=== PATIENT | male | born 1950 | race Caucasian/White ===

== ENCOUNTER 2021-12-19 10:10 | Inpatient (IN) | payer OTHER, MEDICAID ==
[~2021-12-19] VITALS: Ht 175.3 cm; Wt 118.4 kg
--- NOTE | 2021-12-19 10:10 | NUR ---
[facility] TO ER BED 8
[2021-12-19 10:16] VITALS: BP 135/44
--- NOTE | 2021-12-19 10:21 | NUR ---
DR CERDA AT BEDSIDE.
--- NOTE | 2021-12-19 10:38 | NUR ---
X-RAY AT BEDSIDE.
--- NOTE | 2021-12-19 10:38 | NUR ---
LAB AT BEDSIDE.
[2021-12-19 11:04] LABS: BASOPHILS # (AUTO) 0.1 K/uL (0.00-0.22); BASOPHILS % (AUTO) 0.6 % (0.0-2.0); EOSINOPHILS # (AUTO) 0.1 K/uL (0-0.4); EOSINOPHILS % (AUTO) 0.7 % (0.0-4.0); HEMATOCRIT 47.5 % (36-52); HEMOGLOBIN 16.2 g/dL (12.0-18.0); LYMPHOCYTES # (AUTO) 0.7 K/uL (2.0-11.5); LYMPHOCYTES % (AUTO) 5.7 % (20.5-51.1); MEAN CORPUSCULAR HEMOGLOBIN 31 pg (27-31); MEAN CORPUSCULAR HGB CONC 34 g/dL (33-37); MEAN CORPUSCULAR VOLUME 89.6 fL (80-94); MONOCYTES # (AUTO) 1.1 K/uL (0.8-1.0); MONOCYTES % (AUTO) 8.7 % (1.7-9.3); NEUTROPHILS # (AUTO) 10.9 K/uL (1.8-7.7); NEUTROPHILS % (AUTO) 84.3 % (42.2-75.2); PLATELET COUNT (AUTO) 140 K/uL (140-450); RED CELL DISTRIBUTION WIDTH 14.8 % (11.6-13.7); WHITE BLOOD COUNT (AUTO) 12.9 K/uL (4.8-10.8)
--- NOTE | 2021-12-19 11:05 | NUR ---
ULTRASOUND AT BEDSIDE.
--- NOTE | 2021-12-19 11:05 | NUR ---
71 Y/O M BIBA FROM HOME C/O R KNEE PAIN 10 POST FALL LAST NIGHT. PT A&O X 2. DENIES LOC OR HEAD INJURY. DENIES FEVER/CHILLS. DENIES N/V/D. PT IS A POOR HISTORIAN. PMH: HTN, DM ALLERGIES: PCN
[2021-12-19] MEDS ORDERED: cefTRIAXone 1,000 MG VIAL ONE (11:18)
--- NOTE | 2021-12-19 11:22 | NUR ---
PT PROVIDED WITH WARM BLANKET
[2021-12-19 11:25] LABS: ALBUMIN 3.6 g/dL (3.4-5.0); ANION GAP 13.7 (8-16); CREATININE 1.7 mg/dL (0.6-1.3); POTASSIUM 4.7 mmol/L (3.5-5.1); TOTAL BILIRUBIN 1.3 mg/dL (0.0-1.0)
--- NOTE | 2021-12-19 12:02 | NUR ---
PT TO CT VIA [facility].
[2021-12-19] MEDS ORDERED: NACL 0.9% 1,000 ML IV ONE (12:40)
[2021-12-19 13:16] LABS: PROTHROMBIN TIME 11.5 secs (10.8-13.4)
[2021-12-19] MEDS ORDERED: AZITHROMYCIN 500 MG in DEXTROSE 5% 250 ML IV ONE (13:40)
--- NOTE | 2021-12-19 13:43 | NUR ---
BOARDING HOUSE MANAGER AT PT BEDSIDE.
[2021-12-19] MEDS ORDERED: AZITHROMYCIN 500 MG INJ VIAL IV ONE (13:59)
--- NOTE | 2021-12-19 14:16 | NUR ---
PT DOES NOT KNOW WHAT MEDS HE TAKES. CALLED AND LEFT A MESSAGE WITH THE CAREGIVER MARYAM TO GET THE LIST OF MEDS. [phone].
[2021-12-19] MEDS ORDERED: POTASSIUM CHLORIDE 10 MEQ TABER PO PRN (14:40)
[2021-12-19] MEDS ORDERED: DOCUSATE SODIUM 100 MG GELCAP PO PRN (14:40)
[2021-12-19] MEDS ORDERED: ONDANSETRON 4 MG/2 ML VIAL IVP PRN (14:40)
[2021-12-19] MEDS ORDERED: DEXTROSE 50% 50 ML SYR IVP PRN (14:40)
[2021-12-19] MEDS ORDERED: LORazepam 2 MG/ML VIAL IVP PRN (14:40)
[2021-12-19] MEDS ORDERED: MAG SULF 2000 MG/WATER PREMIX 50 ML IV PRN (14:40)
[2021-12-19] MEDS ORDERED: ALBUTEROL SULFATE/IPRATROPIU 3 ML SOL IH PRN (14:40)
[2021-12-19] MEDS ORDERED: AZITHROMYCIN 250 MG TAB PO ONE (14:45)
--- NOTE | 2021-12-19 15:10 | NUR ---
BED GIVEN FROM TELE CHARGE GENESIS ARENAS. WAS TOLD WILL ASSIGN RN AND CALL BACK WHEN ROOM IS READY
[2021-12-19] MEDS: NACL 0.9% 500 ML IV SCH ×2 (15:36→21:58)
[2021-12-19] MEDS: BLOOD GLUCOSE MONITORING 1 DEV DEV FS SCH ×2 (16:52→20:38)
--- NOTE | 2021-12-19 17:13 | NUR ---
Pt report given to CARLEY HURTADO. Transfer of care at this time.
--- NOTE | 2021-12-19 17:15 | NUR ---
RECEIVED REPORT FROM GERIATRIC NURSE ASSISTANT. STATES HOME MED REC NOT COMPLETED. PT UNABLE TO RECALL MEDICATIONS. CONTACTED CAREGIVER MARYAM AT X5 TIMES AND MESSAGE LEFT TO CALL POOL RN FOR PT'S MEDICAL HISTORY AND MEDICATIONS. AWAITING PHONE CALL RETURN. PT A/O X3. SOB NOTED ON EXERTION. ON 2L NC. STATES PAIN ON RLE. ON TELE, CCHO DIET. #18 LAC SL. NEEDS ALL MET AT THIS TIME. SAFETY MEASURES IN PLACE. WILL CONTINUE TO MONITOR.
[2021-12-19] MEDS ORDERED: PIPERACILLIN/TAZOBACTAM 3.375 GM in DEXTROSE 5% 50 ML IV SCH (18:00)
--- NOTE | 2021-12-19 19:37 | NUR ---
REPORT GIVEN TO NIGHTSHIFT RN FOR CONTINUITY OF CARE.
[2021-12-19 20:00] VITALS: BP 130/67
--- NOTE | 2021-12-19 20:00 | NUR ---
GET REPORT FROM MORNING NURSE, PATIENT IS LYING ON BED ,PATIENT IS ALERT AND ORIENTED X4, NO ANY COMPLAIN OF PAIN OR SHORTNESS OF BREATH NOTED AT THIS TIME, VITAL SIGN IS WITHIN THE NORMAL RANGE , ALL DUE MEDS ARE GIVEN PER DR ORDER, CALL LIGHT IS WITHIN THE REACH, WILL CONTINUE TO MONITOR
--- NOTE | 2021-12-19 20:38 | NUR ---
BLOOD SUGAR CHECK WAS 110, NO INSULIN COVERAGE NEEDED.
[2021-12-20] VITALS: BP 140/61
--- NOTE | 2021-12-20 | NUR ---
PATIENT IS LYING ON BED ,PATIENT IS ALERT AND ORIENTED X4, NO ANY COMPLAIN OF PAIN OR SHORTNESS OF BREATH AT THIS TIME, , VITAL SIGN IS WITHIN THE NORMAL RANGE , ALL DUE MEDS ARE GIVEN PER DR ORDER, CHANGE PATIENT POSITION CALL LIGHT IS WITHIN THE REACH, WILL CONTINUE TO MONITOR.
[2021-12-20] MEDS: MORPHINE SULFATE 2 MG/ML SYR IVP PRN ×4 (00:39→20:55)
--- NOTE | 2021-12-20 00:40 | NUR ---
PATIENT IS COMPLAINING OF PAIN /, BP;140/61. OR: 93/M. MORPHINE 2MG PRN GIVEN PER DOCTOR ORDER, WILL REASSESS THE PAIN AND WILL CONTINUE TO MONITOR .
[2021-12-20 04:00] VITALS: BP 138/76
--- NOTE | 2021-12-20 04:43 | NUR ---
PATIENT IS LYING ON BED ,PATIENT IS ALERT AND ORIENTED X4, NO ANY COMPLAIN OF PAIN OR SHORTNESS OF BREATH AT THIS TIME, VITAL SIGN IS WITHIN THE NORMAL RANGE , ALL DUE MEDS ARE GIVEN PER DR ORDER, HELPED TO RE POSITION AND CHANGE PATIENT, CALL LIGHT IS WITHIN THE REACH, WILL CONTINUE TO MONITOR
--- NOTE | 2021-12-20 05:07 | NUR ---
PATIENT IS COMPLAINING OF PAIN 6/10, BP IS 139/79.PULSE IS 93, MORPHINE 2MG IV PRN GIVEN PER DOCTOR ORDER,WILL REASSESS PAIN, CALL LIGHT WITHIN THE REACH WILL CONTINUE TO MONITOR.
[2021-12-20] MEDS: NACL 0.9% 500 ML IV SCH ×3 (05:09→21:57)
[2021-12-20] MEDS: BLOOD GLUCOSE MONITORING 1 DEV DEV FS SCH ×4 (06:41→20:41)
[2021-12-20 06:55] LABS: BASOPHILS % (AUTO) 0.4 % (0.0-2.0); EOSINOPHILS % (AUTO) 0.2 % (0.0-4.0); HEMOGLOBIN 14.3 g/dL (12.0-18.0); LYMPHOCYTES # (AUTO) 0.8 K/uL (2.0-11.5); LYMPHOCYTES % (AUTO) 7.5 % (20.5-51.1); MEAN CORPUSCULAR HEMOGLOBIN 31 pg (27-31); MEAN CORPUSCULAR HGB CONC 34 g/dL (33-37); MEAN CORPUSCULAR VOLUME 89.4 fL (80-94); MONOCYTES # (AUTO) 1.3 K/uL (0.8-1.0); MONOCYTES % (AUTO) 12.4 % (1.7-9.3); NEUTROPHILS # (AUTO) 8.4 K/uL (1.8-7.7); PLATELET COUNT (AUTO) 132 K/uL (140-450); RED CELL DISTRIBUTION WIDTH 14.6 % (11.6-13.7); WHITE BLOOD COUNT (AUTO) 10.6 K/uL (4.8-10.8)
[2021-12-20 07:18] LABS: CARBON DIOXIDE 18.9 mmol/L (21-32); CREATININE 1.5 mg/dL (0.6-1.3); POTASSIUM 3.9 mmol/L (3.5-5.1)
--- NOTE | 2021-12-20 07:26 | NUR ---
GIVE PATIENT REPORT TO MORNING NURSE SANDOR . PATIENT IS ALERT AND ORIENTED X4
--- NOTE | 2021-12-20 07:27 | NUR ---
RECEIVED BEDSIDE REPORT FROM GLAZIER SUPERVISOR NURSE, FOR CONTINUOUS OF CARE. PT RESTING, NO DISTRESS NOTED, AWAKE, ALERT ABLE TO LET NEEDS KNOWN. PT ON ROOM AIR, NO SOB NOTED. IV TO LAC 18G PATENT INTACT, INFUSING WELL. INITIAL ASSESSMENT DONE, ALL SAFETY PRECAUTION MET, CALL LIGHT WITHIN REACH, WILL CONTINUE TO MONITOR.
[2021-12-20 07:34] LABS: NEUTROPHILS % (AUTO) 79.5 % (42.2-75.2)
[2021-12-20 08:00] VITALS: BP 136/73
--- NOTE | 2021-12-20 08:00 | NUR ---
DR YESY DOMÍNGUEZ, ASSESSING PT.
[2021-12-20] MEDS ORDERED: MAG SULF 2000 MG/WATER PREMIX 50 ML IV SCH (08:30)
[2021-12-20] MEDS: AZITHROMYCIN 250 MG TAB PO SCH (09:27)
--- NOTE | 2021-12-20 09:34 | NUR ---
DUE MEDICATIONS ADMINISTERED, PT TOLERATED WELL, NO DISTRESS NOTED, WILL CONTINUE TO MONITOR.
--- NOTE | 2021-12-20 10:22 | NUR ---
REPOSITIONED PT, TOLERATED WELL, WILL CONTINUE TO MONITOR.
[2021-12-20 12:00] VITALS: BP 154/50
--- NOTE | 2021-12-20 14:31 | NUR ---
PT RESTING, NO DISTRESS NOTED, WILL CONTINUE TO MONITOR.
[2021-12-20 16:00] VITALS: BP 162/48
[2021-12-20] MEDS: ACETAMINOPHEN 325 MG TAB PO PRN (16:20)
--- NOTE | 2021-12-20 16:21 | NUR ---
PATIENT TEMP 100.7, TYLENOL ORDERED GIVEN, PT TOLERATED, WILL CONTINUE TO MONITOR.
--- NOTE | 2021-12-20 16:41 | NUR ---
PT C/O PAIN, MEDICATION ADMINISTERED, PT TOLERATED WELL, WILL CONTINUE TO MENTION.
--- NOTE | 2021-12-20 19:30 | NUR ---
ENDORSED PT TO MARKET SURVEY REPRESENTATIVE NURSE FOR CONTINUOUS OF CARE.
[2021-12-20 20:00] VITALS: BP 106/57
--- NOTE | 2021-12-20 20:00 | NUR ---
GET REPORT FROM MORNING NURSE, PATIENT IS LYING ON BED, PATIENT IS ALERT AND ORIENTED X3-4 , VITAL SIGN IS WITHIN THE RANGE , BLOOD SUGAR IS 131 NO COVERAGE NEEDED, PATIENT IS COMPLAINING ABOUT PAIN 6/. MORPHINE 2MG IV PRN PER DR ORDER GIVEN, ALL SCHEDULE MEDS ARE GIVEN PER DR ORDER, WILL REASSESS PAIN , CALL LIGHT IS WITHIN THE REACH ,WILL CONTINUE TO MONITOR
[2021-12-20] MEDS: methylPREDNISolone SS 40 MG/ML VIAL IVP SCH (20:34)
[2021-12-21] VITALS: BP 127/67
--- NOTE | 2021-12-21 | NUR ---
PATIENT IS LYING ON BED , NO ANY COMPLAIN OF PAIN , DUE MEDS ARE GIVEN DR ORDER, VITAL SIGN IS WITHIN THE REACH ,CALL LIGHT IS WITHIN THE REACH WILL CONTINUE TO MONITOR.
[2021-12-21] MEDS: NACL 0.9% 500 ML IV SCH (03:40)
[2021-12-21] MEDS: MORPHINE SULFATE 2 MG/ML SYR IVP PRN (03:41)
--- NOTE | 2021-12-21 03:50 | NUR ---
PATIENT IS COMPLAINING OF PAIN 6/10 , MEDICATED WITH MORPHINE 2 MG/ML UV PRN PER DR ORDER , WILL REASSESS THE PAIN LAVAL, CALL LIGHT IS WITHIN THE REACH WILL CONTINUE TO MONITOR
[2021-12-21 04:00] VITALS: BP 114/54
--- NOTE | 2021-12-21 05:10 | NUR ---
PATIENT IS LYING ON BED , DUE MEDS ARE GIVEN DR ORDER, VITAL SIGN IS WITHIN THE RANGE,CALL LIGHT IS WITHIN THE REACH WILL CONTINUE TO MONITOR
--- NOTE | 2021-12-21 05:30 | NUR ---
PT TURNED AND REPOSITIONED IN BED. NO C/O VOICED ALL ORDERED SAFETY PRECAUTIONS IN PLACE.
[2021-12-21] MEDS: BLOOD GLUCOSE MONITORING 1 DEV DEV FS SCH ×4 (06:33→21:00)
[2021-12-21 06:51] LABS: BASOPHILS % (AUTO) 0.1 % (0.0-2.0); EOSINOPHILS % (AUTO) 0.1 % (0.0-4.0); HEMATOCRIT 40.2 % (36-52); HEMOGLOBIN 13.6 g/dL (12.0-18.0); LYMPHOCYTES # (AUTO) 0.5 K/uL (2.0-11.5); LYMPHOCYTES % (AUTO) 5.2 % (20.5-51.1); MEAN CORPUSCULAR HEMOGLOBIN 31 pg (27-31); MEAN CORPUSCULAR HGB CONC 34 g/dL (33-37); MEAN CORPUSCULAR VOLUME 89.8 fL (80-94); MONOCYTES # (AUTO) 0.6 K/uL (0.8-1.0); MONOCYTES % (AUTO) 6.1 % (1.7-9.3); NEUTROPHILS # (AUTO) 9.1 K/uL (1.8-7.7); NEUTROPHILS % (AUTO) 88.5 % (42.2-75.2); PLATELET COUNT (AUTO) 127 K/uL (140-450); RED BLOOD CELL COUNT(AUTO) 4.47 MIL/uL (4.20-6.10); RED CELL DISTRIBUTION WIDTH 14.8 % (11.6-13.7); WHITE BLOOD COUNT (AUTO) 10.2 K/uL (4.8-10.8)
[2021-12-21 07:02] LABS: ANION GAP 15.2 (8-16); CARBON DIOXIDE 18.4 mmol/L (21-32); CREATININE 1.4 mg/dL (0.6-1.3); POTASSIUM 4.6 mmol/L (3.5-5.1)
[2021-12-21] MEDS: NACL 0.9% 1,000 ML IV SCH ×2 (07:40→23:57)
[2021-12-21 08:00] VITALS: BP 153/78
--- NOTE | 2021-12-21 08:51 | NUR ---
PATIENT HAS BEEN SCREENED AND CATEGORIZED MODERATE NUTRITION RISK. PATIENT WILL BE SEEN WITHIN 3-5 DAYS OF ADMISSION. / [address]
[2021-12-21] MEDS: methylPREDNISolone SS 40 MG/ML VIAL IVP SCH ×2 (09:38→21:48)
[2021-12-21] MEDS: AZITHROMYCIN 250 MG TAB PO SCH (09:38)
--- NOTE | 2021-12-21 12:55 | NUR ---
DC PLANNIN YRS OLD MALE PATIENT WAS ADMITTED FROM HOME WITH A DX OF COMMUNITY ACQUIRED PNEUMONIA. PATIENT HAS A HX OF HTN. CXR SHOWED MILD BIBASILAR OPACITIES, ATELECTASIS. CT CHEST SHOWED NO PE. US VENOUS RIGHT LOWER EXT NO DVT. RIGHT X-RAY SHOWED MODERATE JOINT EFFUSION. NO FRACTURE. RAPID COVID TEST NEGATIVE. ADMINISTERED IVF, IV ABX ROCEPHIN AND IV SOLU-MEDROL. CONSULTED WITH CARDIO AND PULMO. DC PLAN TO GO HOME VS SNF. WHEN STABLE Addendum: 12/22/21 at 1403 by Karena Lackey RN DC PLANNING: SPOKE WITH PATIENT REGARDING SNF PLACEMENT, PT STATED WANTED TO GO HOME FIRST AND GO TO SNF. I EXPLAINED THAT THE DR ORDERED FOR HIM TO GO TO SNF FOR REHAB. PT VERBALIZED UNDERSTANDING AND REQUESTING CM TO SPEAK WITH THE INTERACTIVE MEDIA SPECIALIST MAGY AT [phone] . CALLED AND LEFT A MESSAGE. CM TO FOLLOW
--- NOTE | 2021-12-21 13:03 | NUR ---
P.T. NOTES P.T. EVAL COMPLETED; REFER TO EVAL FOR DETAILS.
--- NOTE | 2021-12-21 19:18 | NUR ---
PATIENT SHOWS NO SOB AT THIS TIME. SATS ON ROOM AIR 94%. PATIENT WILL CALL IF HE NEEDS HHNTX
--- NOTE | 2021-12-21 19:30 | NUR ---
PT ENDORSED TO RESIDENTIAL SUPPORT WORKER FOR CONTINUITY OF CARE. POC DISCUSSED.
[2021-12-21 20:00] VITALS: BP 146/76
[2021-12-21] MEDS ORDERED: HYDRAGUARD CREAM TP ONE (21:12)
[2021-12-21] MEDS: INSULIN LISPRO SLIDING SCALE 100 UNITS/ML VIAL SUBQ PRN (22:06)
--- NOTE | 2021-12-22 | NUR ---
JO , C/O SLEEPLESSNESS - BP 146/78 , PA 65 , RR 20 , 02 SAT 97 % - WILL MEDICATE FOR SLEEPLESSNESS .
--- NOTE | 2021-12-22 00:02 | NUR ---
PER PT IF THE DOCTOR DISCHARGE HIM - HE WANTS TO DISHARGE HOME , HE SAID HE HAS CAREGIVER , ALSO HE IS REQUESTING A NEW WHEELCHAIR - WILL ENDORSE IT TO THE NURSE AM .
[2021-12-22] MEDS ORDERED: HYDRAGUARD CREAM TP PRN (00:20)
[2021-12-22] MEDS: ZOLPIDEM 10 MG TAB PO PRN ×2 (00:49→23:52)
[2021-12-22 04:00] VITALS: BP 140/82
--- NOTE | 2021-12-22 04:00 | NUR ---
ROUNDS , NO COMPLAIN MADE .
[2021-12-22 04:04] LABS: APPEARANCE,URINE CLEAR (CLEAR); BILIRUBIN,URINE NEGATIVE (NEGATIVE); BLOOD, URINE 2+ (NEGATIVE); COLOR,URINE YELLOW (YELLOW); LEUKOCYTE ESTERASE ,URINE NEGATIVE (NEGATIVE); NITRITE, URINE NEGATIVE (NEGATIVE); PH,URINE 5.5 (5.0-9.0); UGLUCOSE NEGATIVE (NEGATIVE)
[2021-12-22 04:12] LABS: RBC,URINE 0-5 /HPF (0-5); WBC,URINE 0-5 /HPF (0-5)
--- NOTE | 2021-12-22 06:00 | NUR ---
SLEEPING , BUT EASILY AWAKEABLE BY SOUNDS , CALL LIGHT WITHIN REACH .
[2021-12-22] MEDS: BLOOD GLUCOSE MONITORING 1 DEV DEV FS SCH ×4 (06:28→21:09)
[2021-12-22 06:58] LABS: BASOPHILS % (AUTO) 0.2 % (0.0-2.0); HEMATOCRIT 39.6 % (36-52); HEMOGLOBIN 13.2 g/dL (12.0-18.0); LYMPHOCYTES # (AUTO) 0.7 K/uL (2.0-11.5); LYMPHOCYTES % (AUTO) 4.6 % (20.5-51.1); MEAN CORPUSCULAR HEMOGLOBIN 30 pg (27-31); MEAN CORPUSCULAR HGB CONC 33 g/dL (33-37); MEAN CORPUSCULAR VOLUME 90.4 fL (80-94); MONOCYTES # (AUTO) 0.6 K/uL (0.8-1.0); MONOCYTES % (AUTO) 4.4 % (1.7-9.3); NEUTROPHILS # (AUTO) 12.8 K/uL (1.8-7.7); NEUTROPHILS % (AUTO) 90.8 % (42.2-75.2); PLATELET COUNT (AUTO) 167 K/uL (140-450); RED BLOOD CELL COUNT(AUTO) 4.38 MIL/uL (4.20-6.10); RED CELL DISTRIBUTION WIDTH 14.7 % (11.6-13.7); WHITE BLOOD COUNT (AUTO) 14.1 K/uL (4.8-10.8)
--- NOTE | 2021-12-22 07:25 | NUR ---
ENDORSE TO AM SHIFT PT'S REQUESTING WHEELCHAIR . [employer] SERVICE TEAM MEMBER PRASANTH VERBALIZES UNDERSTANDING .
[2021-12-22 08:00] VITALS: BP 136/66
[2021-12-22 08:09] LABS: CARBON DIOXIDE 15.9 mmol/L (21-32); CREATININE 1.3 mg/dL (0.6-1.3); POTASSIUM 4.9 mmol/L (3.5-5.1)
[2021-12-22] MEDS: AZITHROMYCIN 250 MG TAB PO SCH (08:34)
[2021-12-22] MEDS: methylPREDNISolone SS 40 MG/ML VIAL IVP SCH ×2 (08:34→21:10)
[2021-12-22] MEDS: lisinopriL 20 MG TAB PO SCH (08:38)
--- NOTE | 2021-12-22 10:25 | NUR ---
DC PLANNING LATE ENTRY, CLIENT SEEN ON 12/22/21 PATIENT IS A 70 YR OLD MALE WHO ARRIVED TO [facility]/ED ON 12/19 FOR COMMUNITY ACQUIRED PNEUMONIA. SW MET WITH PATIENT AT BEDSIDE FOR THE PURPOSE OF DISCUSSING AND GATHERING COLLATERAL INFORMATION. PATIENT REPORTS LIVING ALONE AND HAS A CAREGIVER (MAGY RASHID) [phone] WHO COMES 2X PER WEEK () TO AID IN CARE/APPTS. PATIENT REPORTS EMERGENCY CONTACT AND MEDICAL DECISION MAKER [facility] [phone]. SW INQUIRED ON A.D; PATIENT DENIED HAVING A.D IN PLACE. SW PROVIDED PATIENT WITH INFORMATION; PATIENT WAS RECEPTIVE AND ACCEPTED PACKET.PATIENT REPORTS MEETING WITH HIS PCP REGULARLY AND REPORTS LAST VISIT 1 WEEK PRIOR. PATIENT DENIES BARRIERS IN ACQUIRING MEDICATION AND REPORTS RECEIVING MEDICATIONS FROM THE [facility] [place], WHEN NEEDED. PATIENT REPORTS BEING AMBULATORY WITH WALKER OR CANE ASSISTANCE. PATIENT REPORTS THE ABILITY TO COMPLETE ADLS ON HIS OWN. SW SPOKE WITH PATIENT ABOUT 'S RECOMMENDATIONS FOR SNF CARE, PATIENT REPORTED WANTING TO GO HOME BEFORE BEING PLACED IN CARE. [facility] ATTEMPTED TO PROVIDE PATIENT WITH EDUCATION ON SNF CARE HOWEVER, PATIENT REQUESTED THAT [facility] BE SPOKEN TO ABOUT DECISION. [facility] IS WORKING TO CONTACT [facility] TO PROVIDE SNF INFORMATION. SW INQUIRED ON ADDITIONAL RESOURCES NEED, PATIENT DECLINED AT THIS TIME.
[2021-12-22] MEDS: INSULIN LISPRO SLIDING SCALE 100 UNITS/ML VIAL SUBQ PRN ×2 (11:56→21:27)
[2021-12-22] MEDS: NACL 0.9% 1,000 ML IV SCH (12:16)
[2021-12-22 20:00] VITALS: BP 128/78
--- NOTE | 2021-12-22 20:00 | NUR ---
C/O LEG AND KNEE PAIN - HE RATING 9 - WILL MEDICATE Addendum: 12/22/21 at 2034 by Gilda Henrdicks RN BP 128/ 78 , [place] 65 , RR 20 , O2 SAT 96 %
[2021-12-22] MEDS: MORPHINE SULFATE 2 MG/ML SYR IVP PRN (20:25)
--- NOTE | 2021-12-22 20:48 | NUR ---
PT LAYING IN BED, HOB ELEVATED ANTERIOR AUSCULTATIONS REVEALED BS CLEAR THROUGHOUT ALL LUNG BAINS, NO SIGNS OF RESPIRATORY DISTRESS NOTED AT THIS TIME. PT IS CURRENTLY SATING 95% ON RA. PT DEMONSTRATED WEAK NON PRODUCTIVE COUGH. WILL CONTINUE TO MONITOR.
--- NOTE | 2021-12-22 23:00 | NUR ---
HIT THE CALL LIGHT - PT REQUESTINBG SLEEPING PILL - WILL MEDICATE
[2021-12-23] MEDS: NACL 0.9% 1,000 ML IV SCH (00:13)
[2021-12-23 04:00] VITALS: BP 136/80
--- NOTE | 2021-12-23 04:00 | NUR ---
ROUNDS , UP AND DOWN TO THE BED - ALTHOUGH CAN ANSWER THE QUESTION APPROPRIATELY , 02 SAT 97 TO 96 % , DENIES PAIN
--- NOTE | 2021-12-23 04:45 | NUR ---
ASKING PHARMACIST IF I WILL GIVE ATIVAN PRN - I NOTICE PT HAS ON AND OFF CONFUSSION SINCE HE TOOK AMBIEN , ALTHOUGH ALL V/S ARE WNL - PER PHARMACIST THERE IS RARE CASES THAT PEOPLE GOT CONFUSSION WHEN THEY TOOK AMBIEN BUT THAT IS A SHORT TIME - PHARMACIST SUGGESTING TO MONITOR FIRST AND IF NEEDED MAY GIVE ATIVAN NEEDED .- WILL ENDORSE .
--- NOTE | 2021-12-23 06:00 | NUR ---
PT'S TRYING TO GET UP - BED ALARM ON - ALTHOUGH HE ANSWER SOME QUESTION CORRECTLY , SOME W/ LABILE CONFUSSION . WILL ENDORSE .
[2021-12-23 06:53] LABS: ANION GAP 13.6 (8-16); CARBON DIOXIDE 18.8 mmol/L (21-32); CREATININE 1.2 mg/dL (0.6-1.3); POTASSIUM 4.4 mmol/L (3.5-5.1)
[2021-12-23 06:57] LABS: BASOPHILS % (AUTO) 0.3 % (0.0-2.0); HEMATOCRIT 39.2 % (36-52); HEMOGLOBIN 13.5 g/dL (12.0-18.0); LYMPHOCYTES # (AUTO) 0.5 K/uL (2.0-11.5); MEAN CORPUSCULAR HEMOGLOBIN 31 pg (27-31); MEAN CORPUSCULAR HGB CONC 34 g/dL (33-37); MEAN CORPUSCULAR VOLUME 88.9 fL (80-94); MONOCYTES # (AUTO) 0.5 K/uL (0.8-1.0); MONOCYTES % (AUTO) 4.7 % (1.7-9.3); NEUTROPHILS # (AUTO) 9.3 K/uL (1.8-7.7); PLATELET COUNT (AUTO) 157 K/uL (140-450); RED BLOOD CELL COUNT(AUTO) 4.42 MIL/uL (4.20-6.10); RED CELL DISTRIBUTION WIDTH 14.4 % (11.6-13.7); WHITE BLOOD COUNT (AUTO) 10.4 K/uL (4.8-10.8)
--- NOTE | 2021-12-23 07:25 | NUR ---
ENDORSED - PT - STABEL - BED ALARM ON - I ENDORSE TO GENESIS FRAUSTO TO INFORM THE DOCTOR ABOUT ON AND OFF CONFUSSION OF THE PT - GENESIS FRAUSTO VERBALIZES UNDERSTANDING . PT'S O2 SAT 97 %
--- NOTE | 2021-12-23 08:00 | NUR ---
RECEIVED PATIENT LAYING IN BED CONFUSED AND AWAKE, PATIENT LUNGS CLEAR S1 AND S2 HEARD UPON AUSCULTATION, PATIENT BOWEL SOUNDS NORMAL ACTIVE. PATEIN DENIES PAIN SKIN INTACT HOWEVER PATIENT HAS A BRUISE ON RIGHT LOWER LEG FROM FALL. CALL LIGHT WITHIN REACH, PERSONAL BELONGINGS WITHIN REACH. BED AT LOWEST POSITION AND LOCKED. WILL CONTINUE TO MONITOR.
[2021-12-23] MEDS: BLOOD GLUCOSE MONITORING 1 DEV DEV FS SCH ×2 (08:01→11:53)
[2021-12-23] MEDS ORDERED: ROC2I IV (08:33)
[2021-12-23] MEDS ORDERED: AZIT250T11 PO (08:36)
[2021-12-23] MEDS: methylPREDNISolone SS 40 MG/ML VIAL IVP SCH (09:15)
[2021-12-23] MEDS: AZITHROMYCIN 250 MG TAB PO SCH (09:16)
[2021-12-23] MEDS: lisinopriL 20 MG TAB PO SCH (09:16)
--- NOTE | 2021-12-23 12:00 | NUR ---
INFORMED DR. TRAV REYNOLDS THAT PATIENT HAS INCREASED CONFUSION, PER NIGHTSHIFT NURSE PATIENT WAS ALERT AND ORIENTED X4. AFTER PATIENT RECEIVED AMBIEN LAST NIGHT HE HAD INCREASED CONFUSION PATIENT AND ALTERED MENTAL STATUS.
[2021-12-23] MEDS: INSULIN LISPRO SLIDING SCALE 100 UNITS/ML VIAL SUBQ PRN (12:02)
[2021-12-23] MEDS: ACETAMINOPHEN 325 MG TAB PO PRN (15:14)
[2021-12-23 15:55] VITALS: BP 136/80
--- NOTE | 2021-12-24 08:05 | NUR ---
WOUND CARE EVALUATION NOT DONE,PT DISCHARGED.
== END 2021-12-23 16:15 | DRG 871 ==
LOC: MED 10:10 → MTU 15:00
PROVIDERS: ADMIT General Practice; ATTEND General Practice
DX: A41.9 Sepsis, unspecified organism (principal); J18.9 Pneumonia, unspecified organism; J96.01 Acute respiratory failure with hypoxia; N17.0 Acute kidney failure with tubular necrosis; I42.9 Cardiomyopathy, unspecified; I08.3 Combined rheumatic disorders of mitral, aortic and tricuspid valves; N18.9 Chronic kidney disease, unspecified; E66.9 Obesity, unspecified; E83.42 Hypomagnesemia; M17.0 Bilateral primary osteoarthritis of knee; R26.9 Unspecified abnormalities of gait and mobility; Z20.822 Contact with and (suspected) exposure to COVID-19; M25.561 Pain in right knee; Z60.2 Problems related to living alone; W01.0XXA Fall on same level from slipping, tripping and stumbling without subsequent striking against object, initial encounter; Y93.89 Activity, other specified; Y99.8 Other external cause status; Y92.038 Other place in apartment as the place of occurrence of the external cause; Z90.49 Acquired absence of other specified parts of digestive tract; Z88.0 Allergy status to penicillin; Z68.38 Body mass index [BMI] 38.0-38.9, adult
CPT/HCPCS: 36415; 71045; 71275; 73560; 80048; 80053; 81001; 82550; 82553; 82803; 82948; 83605; 83735; 83880; 84484; 85025; 85610; 85730; 87040; 87081; 93005; 93971; 96361; 96365; 96367; 97110; 97112; 97116; 97530; 99291; J0456; J0696; J1644; J1815; J2270; J2920; J3475; J7030; J7060; Q0092; Q9967

== ENCOUNTER 2024-02-26 10:12 | Inpatient (IN) | payer OTHER ==
[~2024-02-26] VITALS: Ht 175.3 cm; Wt 122.5 kg
[~2024-02-26 10:12] MED LIST: AZIT250T11 PO; ROC2I IV
[2024-02-26 10:19] VITALS: BP 114/72; PULSE 60; RESP 19; TEMP 97.3; O2SAT 98
[2024-02-26 11:00] VITALS: O2SAT 98
[2024-02-26 11:04] LABS: BASOPHILS # (AUTO) 0.1 K/uL (0.00-0.22); BASOPHILS % (AUTO) 1.1 % (0.0-2.0); EOSINOPHILS # (AUTO) 0.1 K/uL (0-0.4); EOSINOPHILS % (AUTO) 1.5 % (0.0-4.0); HEMATOCRIT 37.2 % (36-52); HEMOGLOBIN 12.3 g/dL (12.0-18.0); LYMPHOCYTES # (AUTO) 1.1 K/uL (2.0-11.5); LYMPHOCYTES % (AUTO) 13.9 % (20.5-51.1); MEAN CORPUSCULAR HEMOGLOBIN 28 pg (27-31); MEAN CORPUSCULAR HGB CONC 33 g/dL (33-37); MEAN CORPUSCULAR VOLUME 85.8 fL (80-94); MONOCYTES # (AUTO) 0.8 K/uL (0.8-1.0); MONOCYTES % (AUTO) 9.6 % (1.7-9.3); NEUTROPHILS # (AUTO) 5.8 K/uL (1.8-7.7); NEUTROPHILS % (AUTO) 73.9 % (42.2-75.2); PLATELET COUNT (AUTO) 175 K/uL (140-450); RED BLOOD CELL COUNT(AUTO) 4.33 MIL/uL (4.20-6.10); RED CELL DISTRIBUTION WIDTH 15.7 % (11.6-13.7); WHITE BLOOD COUNT (AUTO) 7.9 K/uL (4.8-10.8)
[2024-02-26 11:30] LABS: ACETAMINOPHEN 1.5 ug/ml (10-30); ALANINE AMINOTRANSFERASE 14 U/L (12-78); ALBUMIN 2.9 g/dL (3.4-5.0); ALKALINE PHOSPHATASE 75 U/L (50-136); ANION GAP 15.9 (8-16); ASPARTATE AMINOTRANSFERASE 17 U/L (15-37); CALCIUM 8.8 mg/dL (8.5-10.1); CARBON DIOXIDE 22.5 mmol/L (21-32); CHLORIDE 105 mmol/L (98-107); CREATININE 3.1 mg/dL (0.6-1.3); GLUCOSE 108 mg/dL (74-106); LIPASE 49 U/L (16-77); POTASSIUM 4.4 mmol/L (3.5-5.1); SODIUM SERUM 139 mmol/L (136-145); TOTAL BILIRUBIN 0.4 mg/dL (0.0-1.0); TOTAL PROTEIN, SERUM 8.1 g/dL (6.4-8.2)
[2024-02-26 11:32] LABS: SALICYLATE < 2.8 mg/dL (2.8-20.0); UREA NITROGEN, BLOOD 66 mg/dL (7-18)
[2024-02-26 11:48] LABS: APPEARANCE,URINE CLEAR (CLEAR); BILIRUBIN,URINE NEGATIVE (NEGATIVE); BLOOD, URINE 3+ (NEGATIVE); COLOR,URINE YELLOW (YELLOW); LEUKOCYTE ESTERASE ,URINE 3+ (NEGATIVE); NITRITE, URINE NEGATIVE (NEGATIVE); PROTEIN,URINE 1+ (NEGATIVE); UGLUCOSE NEGATIVE (NEGATIVE); UROBILINOGEN,URINE 0.2 EU/dL (0.2 - 1)
[2024-02-26 12:04] LABS: BACTERIA,URINE >30 (MANY) /HPF (None Seen); SQUAMOUS EPITHELIAL CELL,UR None Seen /LPF (0-3 (FEW)); WBC,URINE TOO MANY TO COUNT /HPF (0-5)
[2024-02-26] MEDS ORDERED: CARV25TA2 PO (12:04)
[2024-02-26] MEDS ORDERED: METO2.5T1 PO (12:04)
[2024-02-26] MEDS ORDERED: FURO40TA9 PO (12:04)
[2024-02-26] MEDS ORDERED: ESCI-28 PO (12:04)
[2024-02-26] MEDS ORDERED: GABA300S3 (12:04)
[2024-02-26] MEDS ORDERED: APIX5TAB PO (12:04)
[2024-02-26] MEDS ORDERED: ROSU10TA77 PO (12:04)
[2024-02-26] MEDS ORDERED: SENN-74 PO (12:04)
[2024-02-26] MEDS ORDERED: MULT400T14 PO (12:04)
[2024-02-26] MEDS ORDERED: EMPA10TA PO (12:04)
[2024-02-26] MEDS ORDERED: TAMS0.4C97 PO (12:04)
[2024-02-26 12:21] LABS: ALCOHOL, BLOOD < 3 mg/dL (<10)
[2024-02-26] MEDS: NACL 0.9% 500 ML IV ONE (12:21)
[2024-02-26] MEDS: NACL 0.9% 1,000 ML IV SCH (12:30)
[2024-02-26] MEDS ORDERED: LORazepam 1 MG TAB PO PRN (12:30)
[2024-02-26 13:32] LABS: FLU A ANTIGEN negative (NEGATIVE); FLU B ANTIGEN negative (NEGATIVE)
[2024-02-26] MEDS: FUROSEMIDE 40 MG TAB PO SCH (14:40)
[2024-02-26] MEDS: metOLazone 2.5 MG TAB PO SCH (15:59)
[2024-02-26] MEDS: ESCITALOPRAM 20 MG TAB PO SCH (15:59)
[2024-02-26] MEDS: TAMSULOSIN 0.4 MG CAP PO SCH (16:00)
[2024-02-27 01:00] VITALS: BP 112/73; PULSE 60; RESP 20; TEMP 98; O2SAT 97
[2024-02-27 04:00] VITALS: BP 118/76; PULSE 62; RESP 20; TEMP 97.8; O2SAT 97
[2024-02-27 05:55] LABS: BASOPHILS # (AUTO) 0.1 K/uL (0.00-0.22); EOSINOPHILS # (AUTO) 0.1 K/uL (0-0.4); HEMATOCRIT 35.5 % (36-52); HEMOGLOBIN 11.9 g/dL (12.0-18.0); LYMPHOCYTES # (AUTO) 0.9 K/uL (2.0-11.5); LYMPHOCYTES % (AUTO) 13.9 % (20.5-51.1); MEAN CORPUSCULAR HEMOGLOBIN 28 pg (27-31); MEAN CORPUSCULAR HGB CONC 33 g/dL (33-37); MEAN CORPUSCULAR VOLUME 85.2 fL (80-94); MONOCYTES # (AUTO) 0.7 K/uL (0.8-1.0); MONOCYTES % (AUTO) 10.8 % (1.7-9.3); NEUTROPHILS # (AUTO) 4.8 K/uL (1.8-7.7); NEUTROPHILS % (AUTO) 72.3 % (42.2-75.2); PLATELET COUNT (AUTO) 148 K/uL (140-450); RED BLOOD CELL COUNT(AUTO) 4.17 MIL/uL (4.20-6.10); RED CELL DISTRIBUTION WIDTH 15.2 % (11.6-13.7); WHITE BLOOD COUNT (AUTO) 6.7 K/uL (4.8-10.8)
[2024-02-27 06:48] LABS: PHOSPHORUS 4.4 mg/dL (2.5-4.9)
[2024-02-27 08:00] VITALS: BP 127/68; PULSE 56; RESP 18; TEMP 97.3; O2SAT 97
[2024-02-27] MEDS ORDERED: ATORVASTATIN 20 MG TAB PO SCH (09:00)
[2024-02-27] MEDS ORDERED: DOCUSATE SODIUM 100 MG GELCAP PO SCH (09:00)
[2024-02-27] MEDS ORDERED: SENNA 8.6 MG TAB PO SCH (09:00)
[2024-02-27] MEDS: MULTIVITAMIN 1 TAB PO SCH (09:38)
[2024-02-27] MEDS: ATORVASTATIN 20 MG TAB PO SCH (09:38)
[2024-02-27 16:00] VITALS: BP 122/61; PULSE 57; RESP 18; TEMP 97.8; O2SAT 97
[2024-02-27 16:03] LABS: AMPHETAMINE, URINE NEGATIVE ng/ml (NEG <=1000); BARBITURATE, URINE NEGATIVE ng/ml (NEG <=200); BENZODIAZEPINE, URINE NEGATIVE ng/mL (NEG <=200); CANNABINOID, URINE NEGATIVE ng/mL (NEG <=50); COCAINE, URINE NEGATIVE ng/mL (NEG <=300); OPIATE, URINE NEGATIVE ng/mL (NEG <=2000); PHENCYCLIDINE SCREEN,URINE NEGATIVE ng/mL (NEG <=25)
[2024-02-27] MEDS: ZOLPIDEM 5 MG TAB PO PRN (22:16)
[2024-02-27] MEDS: HYDROcodone/APAP 5/325 MG 1 TAB TAB PO PRN (22:16)
[2024-02-28 04:00] VITALS: BP 102/54; PULSE 62; RESP 19; TEMP 98.2; O2SAT 94
[2024-02-28 05:38] LABS: BASOPHILS # (AUTO) 0.1 K/uL (0.00-0.22); BASOPHILS % (AUTO) 0.9 % (0.0-2.0); EOSINOPHILS # (AUTO) 0.2 K/uL (0-0.4); EOSINOPHILS % (AUTO) 2.1 % (0.0-4.0); HEMATOCRIT 37.1 % (36-52); HEMOGLOBIN 12.3 g/dL (12.0-18.0); LYMPHOCYTES # (AUTO) 1.6 K/uL (2.0-11.5); MEAN CORPUSCULAR HEMOGLOBIN 28 pg (27-31); MEAN CORPUSCULAR HGB CONC 33 g/dL (33-37); MEAN CORPUSCULAR VOLUME 85.7 fL (80-94); MONOCYTES % (AUTO) 12.9 % (1.7-9.3); NEUTROPHILS # (AUTO) 4.8 K/uL (1.8-7.7); NEUTROPHILS % (AUTO) 63.1 % (42.2-75.2); PLATELET COUNT (AUTO) 164 K/uL (140-450); RED BLOOD CELL COUNT(AUTO) 4.33 MIL/uL (4.20-6.10); RED CELL DISTRIBUTION WIDTH 15.4 % (11.6-13.7); WHITE BLOOD COUNT (AUTO) 7.6 K/uL (4.8-10.8)
[2024-02-28 06:07] LABS: ALANINE AMINOTRANSFERASE 14 U/L (12-78); ALBUMIN 2.9 g/dL (3.4-5.0); ALKALINE PHOSPHATASE 75 U/L (50-136); ANION GAP 14.7 (8-16); ASPARTATE AMINOTRANSFERASE 27 U/L (15-37); CALCIUM 8.6 mg/dL (8.5-10.1); CHLORIDE 103 mmol/L (98-107); CREATININE 3.3 mg/dL (0.6-1.3); GLUCOSE 99 mg/dL (74-106); POTASSIUM 3.7 mmol/L (3.5-5.1); SODIUM SERUM 137 mmol/L (136-145); TOTAL BILIRUBIN 0.3 mg/dL (0.0-1.0); TOTAL PROTEIN, SERUM 7.7 g/dL (6.4-8.2)
[2024-02-28 06:38] LABS: UREA NITROGEN, BLOOD 71 mg/dL (7-18)
[2024-02-28 08:00] VITALS: BP 120/68; PULSE 57; RESP 18; TEMP 97.8; O2SAT 96
[2024-02-28 16:00] VITALS: BP 98/48; PULSE 59; RESP 18; TEMP 97.6; O2SAT 97
[2024-02-28 20:00] VITALS: PULSE 80; RESP 18; O2SAT 97
[2024-02-29 06:12] LABS: BASOPHILS # (AUTO) 0.1 K/uL (0.00-0.22); BASOPHILS % (AUTO) 1.2 % (0.0-2.0); EOSINOPHILS # (AUTO) 0.2 K/uL (0-0.4); EOSINOPHILS % (AUTO) 2.3 % (0.0-4.0); HEMATOCRIT 37.1 % (36-52); HEMOGLOBIN 12.8 g/dL (12.0-18.0); LYMPHOCYTES # (AUTO) 1.3 K/uL (2.0-11.5); MEAN CORPUSCULAR HEMOGLOBIN 29 pg (27-31); MEAN CORPUSCULAR HGB CONC 34 g/dL (33-37); MEAN CORPUSCULAR VOLUME 84.5 fL (80-94); MONOCYTES # (AUTO) 0.9 K/uL (0.8-1.0); MONOCYTES % (AUTO) 12.7 % (1.7-9.3); NEUTROPHILS # (AUTO) 4.8 K/uL (1.8-7.7); NEUTROPHILS % (AUTO) 65.8 % (42.2-75.2); PLATELET COUNT (AUTO) 156 K/uL (140-450); RED BLOOD CELL COUNT(AUTO) 4.39 MIL/uL (4.20-6.10); RED CELL DISTRIBUTION WIDTH 15.2 % (11.6-13.7); WHITE BLOOD COUNT (AUTO) 7.2 K/uL (4.8-10.8)
[2024-02-29 06:17] LABS: ALANINE AMINOTRANSFERASE 19 U/L (12-78); ALKALINE PHOSPHATASE 83 U/L (50-136); ANION GAP 13.9 (8-16); ASPARTATE AMINOTRANSFERASE 29 U/L (15-37); CALCIUM 8.7 mg/dL (8.5-10.1); CARBON DIOXIDE 24.8 mmol/L (21-32); CHLORIDE 102 mmol/L (98-107); GLUCOSE 89 mg/dL (74-106); POTASSIUM 3.7 mmol/L (3.5-5.1); SODIUM SERUM 137 mmol/L (136-145); TOTAL BILIRUBIN 0.4 mg/dL (0.0-1.0); TOTAL PROTEIN, SERUM 8.1 g/dL (6.4-8.2)
[2024-02-29 06:24] LABS: CREATININE 3.2 mg/dL (0.6-1.3); UREA NITROGEN, BLOOD 70 mg/dL (7-18)
[2024-02-29 08:00] VITALS: PULSE 60; RESP 18; O2SAT 100
[2024-02-29] MEDS ORDERED: ERTA1VIA2 IV (09:55)
[2024-02-29 11:32] VITALS: BP 98/48; PULSE 60; RESP 18; TEMP 97.6
[2024-02-29] MEDS: ONDANSETRON 4 MG/2 ML VIAL IVP PRN (13:52)
== END 2024-02-29 16:20 | disposition home health service (06) | DRG 682 ==
LOC: MED 10:12 → MMU 12:27
PROVIDERS: ADMIT Student in an Organized Health Care Education/Training Program; ATTEND Student in an Organized Health Care Education/Training Program
DX: N17.0 Acute kidney failure with tubular necrosis (principal); G93.41 Metabolic encephalopathy; N39.0 Urinary tract infection, site not specified; I42.9 Cardiomyopathy, unspecified; I13.0 Hypertensive heart and chronic kidney disease with heart failure and stage 1 through stage 4 chronic kidney disease, or unspecified chronic kidney disease; Z20.822 Contact with and (suspected) exposure to COVID-19; E66.01 Morbid (severe) obesity due to excess calories; Z68.39 Body mass index [BMI] 39.0-39.9, adult; N40.0 Benign prostatic hyperplasia without lower urinary tract symptoms; N18.30 Chronic kidney disease, stage 3 unspecified; E11.22 Type 2 diabetes mellitus with diabetic chronic kidney disease; I50.9 Heart failure, unspecified; Z85.828 Personal history of other malignant neoplasm of skin; Z88.0 Allergy status to penicillin
CPT/HCPCS: 36415; 70450; 71045; 76770; 80053; 80305; 81001; 82550; 83690; 83735; 84100; 84484; 85025; 87070; 87081; 87086; 87186; 93005; 97116; 97163-GP; 97530; 99285; G0480; G0482; J2405; Q0092

== ENCOUNTER 2024-02-29 18:05 | Emergency (ER) | payer OTHER ==
[~2024-02-29] VITALS: Ht 175.3 cm; Wt 113.4 kg
[~2024-02-29 18:05] MED LIST changes: +APIX5TAB PO; +CARV25TA2 PO; +EMPA10TA PO; +ERTA1VIA2 IV; +ESCI-28 PO; +FURO40TA9 PO; +GABA300S3; +METO2.5T1 PO; +MULT400T14 PO; +ROSU10TA77 PO; +SENN-74 PO; +TAMS0.4C97 PO
[2024-02-29 18:11] VITALS: BP 128/60; PULSE 80; RESP 18; TEMP 96.3; O2SAT 95
[2024-02-29 18:59] LABS: BASOPHILS # (AUTO) 0.1 K/uL (0.00-0.22); BASOPHILS % (AUTO) 0.7 % (0.0-2.0); EOSINOPHILS # (AUTO) 0.1 K/uL (0-0.4); EOSINOPHILS % (AUTO) 1.4 % (0.0-4.0); HEMATOCRIT 39.1 % (36-52); HEMOGLOBIN 13.3 g/dL (12.0-18.0); LYMPHOCYTES % (AUTO) 12.6 % (20.5-51.1); MEAN CORPUSCULAR HEMOGLOBIN 29 pg (27-31); MEAN CORPUSCULAR HGB CONC 34 g/dL (33-37); MEAN CORPUSCULAR VOLUME 84.2 fL (80-94); MONOCYTES # (AUTO) 0.9 K/uL (0.8-1.0); MONOCYTES % (AUTO) 11.4 % (1.7-9.3); NEUTROPHILS # (AUTO) 5.8 K/uL (1.8-7.7); NEUTROPHILS % (AUTO) 73.9 % (42.2-75.2); PLATELET COUNT (AUTO) 159 K/uL (140-450); RED BLOOD CELL COUNT(AUTO) 4.65 MIL/uL (4.20-6.10); RED CELL DISTRIBUTION WIDTH 15.8 % (11.6-13.7); WHITE BLOOD COUNT (AUTO) 7.9 K/uL (4.8-10.8)
[2024-02-29] MEDS ORDERED: DICYCLOMINE HCL LIQUID 10 MG/5 ML UDC ONE (19:07)
[2024-02-29] MEDS ORDERED: ALUMINUM HYD/MAG/SIMETHICONE 30 ML UDC ONE (19:07)
[2024-02-29 19:10] LABS: ANION GAP 18.2 (8-16); CARBON DIOXIDE 19.5 mmol/L (21-32); CHLORIDE 99 mmol/L (98-107); CREATININE 3.2 mg/dL (0.6-1.3); GLUCOSE 129 mg/dL (74-106); POTASSIUM 3.7 mmol/L (3.5-5.1); SODIUM SERUM 133 mmol/L (136-145)
[2024-02-29] MEDS: ACETAMINOPHEN EXTRA STRENGTH 500 MG TAB PO ONE (19:13)
[2024-02-29] MEDS: DICYCLOMINE HCL LIQUID 20 MG, ALUMINUM HYD/MAG/SIMETHICONE 30 ML, LIDOCAINE VISCOUS 2% ... PO ONE (19:13)
[2024-02-29 19:14] LABS: UREA NITROGEN, BLOOD 70 mg/dL (7-18)
[2024-02-29 19:17] LABS: ALANINE AMINOTRANSFERASE 20 U/L (12-78); ALBUMIN 3.1 g/dL (3.4-5.0); ALKALINE PHOSPHATASE 89 U/L (50-136); ASPARTATE AMINOTRANSFERASE 26 U/L (15-37); BILIRUBIN,DIRECT 0.1 mg/dL (0.0-0.3); LIPASE 40 U/L (16-77); TOTAL BILIRUBIN 0.4 mg/dL (0.0-1.0); TOTAL PROTEIN, SERUM 8.3 g/dL (6.4-8.2)
[2024-02-29 19:30] VITALS: BP 121/69; PULSE 80; RESP 19; O2SAT 95
[2024-02-29 19:32] LABS: FLU A ANTIGEN negative (NEGATIVE); FLU B ANTIGEN NEGATIVE (NEGATIVE)
[2024-03-09] MEDS ORDERED: FURO40TA9 PO (13:26)
== END 2024-02-29 23:35 | disposition home or self-care (01) ==
LOC: MED 18:05
DX: R53.1 Weakness (principal); R53.83 Other fatigue; Z20.822 Contact with and (suspected) exposure to COVID-19; I13.10 Hypertensive heart and chronic kidney disease without heart failure, with stage 1 through stage 4 chronic kidney disease, or unspecified chronic kidney disease; N18.30 Chronic kidney disease, stage 3 unspecified; Z88.0 Allergy status to penicillin; Z79.899 Other long term (current) drug therapy
CPT/HCPCS: 36415; 71045; 80048; 80076; 82140; 83690; 84484; 85025; 93005; 99285